=== PATIENT | male | born 1980 | race Caucasian/White ===

== ENCOUNTER 2021-06-27 23:00 | Emergency (ER) | payer OTHER, SELFPAY ==
--- NOTE | ~2021-06-27 | XR_ITS ---
EXAMINATION: XR thoracic spine 3V, XR lumbar spine min 4V DATE: 06/28/2021 00:21 INDICATION: Upper and lower back pain TECHNIQUE: 1. One AP, lateral and lateral swimmer's views of the thoracic spine were obtained. 2. AP, lateral, left and right oblique and coned-down lateral lumbosacral views of the lumbar spine w ere obtained. COMPARISON: Thoracic spine radiograph dated 11/14/[address] abdomen and pelvis dated 04/04/2019 FINDINGS: Thoracic spine: There are 13 paired rib-bearing thoracic segments. 8 degree cervicothoracic levocurvature and 9 degre es mid to lower thoracic dextrocurvature. Sagittal alignment is normal. Chronic T7 compression fractu re with <20% anterior vertebral body height loss. Remaining vertebral body heights are normal. Mild t o moderate disc height loss throughout the thoracic and lower cervical spine. Visualized portions of the lungs are clear. No pleural effusion or pneumothorax. Cardiomediastinal silhouette is normal. Lumbar spine: There are 5 nonrib-bearing lumbar segments. 28 degree lumbar levoscoliosis measured between T13 and L 4. 4 mm left lateral listhesis L3 on L4. Lumbar vertebral body heights are normal. Moderate to severe right-sided predominant disc height loss at L1-L2, L2-L3 and L3-L4. Moderate disc height loss at L4- L5 and L5-S1. Chronic left-sided pars interarticularis defect at L5. IMPRESSION: 1. 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 2. Chronic mild T7 compression fracture. 3. Moderate lumbar levoscoliosis with moderate to severe spondylosis. 4. 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 Reviewed, dictated and finalized at location A. IMPRESSION: 1. Mild S-shaped curvature of the cervicothoracic spine with moderate spondylos is. 2. Chronic mild T7 compression fracture. 3. Moderate lumbar levoscoliosis with moderate to severe spondylosis. 4. 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
[2021-06-27 23:13] VITALS: BP 115/87; PULSE 93; RESP 20; TEMP 36.6; O2SAT 96
[2021-06-28 00:16] VITALS: BP 124/90; PULSE 90; RESP 18; O2SAT 98
[2021-06-28] MEDS: IBUPROFEN 600 MG TABLET PO (00:18)
--- NOTE | 2021-06-28 02:03 | ED.GENADULT ---
HPI - General Adult General Chief complaint: Back Pain/Injury Stated complaint: back pain Time Seen by Provider: 06/27/21 23:45 Source: RN notes reviewed History of Present Illness HPI narrative: Patient presents emergency department from home for back pain. Patient states symptoms began approximately 1 month ago. States that pain is located from his mid upper back down to his lower back he states the pain is worse with bending over states he does have a curve to his back which he states he has not had before he denies any direct trauma or injury denies any fevers or chills chest pain shortness of breath abdominal pain nausea vomiting numbness or tingling of the extremities bowel or bladder incontinence or any other symptoms Related Data Allergies Allergy/AdvReac Type Severity Reaction Status Date / Time acetaminophen Allergy Intermediate Verified 10/28/18 12:05 Penicillins Allergy Unknown Verified 10/28/18 12:05 propoxyphene Allergy Unknown Verified 10/28/18 12:05 Sulfa (Sulfonamide Allergy Unknown Verified 10/28/18 12:05 Antibiotics) Review of Systems Review of Systems: Gen.: Denies fevers or chills ENT: Denies congestion Respiratory: Denies shortness of breath or cough CV: Denies chest pain or palpitations GI: Denies abdominal pain nausea, emesis or diarrhea denies bowel or bladder incontinence Musculoskeletal see HPI Neuro: Denies numbness, tingling, weakness or focal weakness Skin: Denies rash Except as documented, all other systems reviewed and negative [facility] Past Medical History Medical History (Updated 06/28/21 @ 02:05 by Shawn Stout DO) Patient denies significant medical history Family History Family History (Updated 03/28/19 @ 09:51 by DOCTOR UNKNOWN) Father Family history of cardiovascular disease Family history of coronary artery disease Other Family history of chronic obstructive pulmonary disease Social History Social History (Updated 06/28/21 @ 02:04 by Shawn Stout DO) Smoking status: Current every day smoker Alcohol intake: never Exam Narrative: APPEARANCE: No acute distress, nontoxic, resting in bed Eyes: EOMI HEENT: Normocephalic, atraumatic, CV: Regular rate and rhythm without murmur RESPIRATORY: No respiratory distress. Clear to auscultation bilaterally. Abdomen: Soft and nontender, no rebound or guarding MUSCULOSKELETAl: Moves all extremities, no clubbing cyanosis or edema Back: No midline lumbar tenderness to palpation or step-off, tender to palpation over bilateral paravertebral muscles T6-L5, pain increased with forward flexion there is scoliosis present NEURO: Awake and alert. Following commands, speech normal, no focal deficits, muscle strength 5 out of 5 bilateral lower extremities, bilateral patellar reflex 2+ SKIN:: Warm, dry. Normal Color no rash or lesions Course Course Emergency Course: Reviewed old records the patient does have a history of scoliosis the patient has been seen in the emergency department several times for back pain Patient with ambulate in ED with no difficulty Discussed with patient results of workup and diagnosis. Discussed need for follow-up with primary care, proper use of medication, and reasons to return to the emergency department. Patient understands and agrees to current treatment plan Vital Signs Vital signs: Vital Signs Temperature 97.9 F 06/27/21 23:13 Pulse Rate 93 06/27/21 23:13 Respiratory Rate 20 06/27/21 23:13 Blood Pressure 115/87 06/27/21 23:13 Pulse Oximetry 96 06/27/21 23:13 Temperature 97.9 F 06/27/21 23:13 Pulse Rate 90 06/28/21 00:16 Respiratory Rate 18 06/28/21 00:16 Blood Pressure 124/90 06/28/21 00:16 Pulse Oximetry 98 06/28/21 00:16 Medical Decision Making Vital Signs Vital Signs: Vital Signs Temperature 97.9 F 06/27/21 23:13 Pulse Rate 93 06/27/21 23:13 Respiratory Rate 20 06/27/21 23:13 Blood Pressure 115/87 06/27/21 2
[2021-06-28 02:21] VITALS: BP 120/73; PULSE 86; RESP 16; O2SAT 98
== END 2021-06-28 02:22 | disposition home or self-care (01) ==
PROVIDERS: Emergency Provider Emergency Medicine; PCP Emergency Medicine
DX: M54.5 Low back pain (principal); M47.816 Spondylosis without myelopathy or radiculopathy, lumbar region; M47.813 Spondylosis without myelopathy or radiculopathy, cervicothoracic region; F17.200 Nicotine dependence, unspecified, uncomplicated
CPT/HCPCS: 72072; 72110; 99283; A9270

== ENCOUNTER 2023-06-14 14:39 | Emergency (ER) | payer OTHER, SELFPAY ==
[2023-06-14 14:48] VITALS: BP 147/83; PULSE 56; RESP 16; TEMP 37; O2SAT 98
--- NOTE | 2023-06-14 15:21 | ED.DENTAL ---
HPI - Dental/Oral General Chief complaint: Dental/Oral Stated complaint: Toothache Source: patient Mode of arrival: ambulatory History of Present Illness HPI Narrative: 43-year-old male presented for complaint of left lower dental pain for 3 days. Endorses swelling to the gum. States he has broken tooth at this site. He does not have a dentist. He does not have a PCP. He is take ibuprofen for pain. Denies nausea, vomiting diarrhea, fevers or chills. MD Complaint: tooth pain Related Data Allergies Allergy/AdvReac Type Severity Reaction Status Date / Time acetaminophen Allergy Intermediate Verified 10/28/18 12:05 Penicillins Allergy Unknown Verified 10/28/18 12:05 propoxyphene Allergy Unknown Verified 10/28/18 12:05 Sulfa (Sulfonamide Allergy Unknown Verified 10/28/18 12:05 Antibiotics) Review of Systems Review of Systems: CONSTITUTIONAL: Denies body aches, fever, chills ENT: Denies rhinorrhea, congestion, sore throat, or otalgia. Reports dental pain CARDIOVASCULAR: Denies chest pain, palpitations RESPIRATORY: Denies cough or dyspnea. SKIN: Denies rash, itching, or wounds. MUSCULOSKELETAL: Denies myalgia. NEUROLOGIC: Denies headache, numbness, tingling, or weakness. [facility] Past Medical History Medical History Patient denies significant medical history Family History Family History Father Family history of cardiovascular disease Family history of coronary artery disease Other Family history of chronic obstructive pulmonary disease Social History Social History Smoking status: Current every day smoker Alcohol intake: never Comments At time of signature, I have reviewed and agree with nursing past medical, surgical, social and family history unless otherwise noted. Please see nursing chart for further information. There is no relevant family history pertinent to the presenting complaint Exam Narrative: GENERAL: Appears in pain; no acute distress. HEAD: Normocephalic, atraumatic. EYES: EOMI. No redness or drainage. Conjunctivae normal. ENT: Dental pain location#22, broken tooth abscess to gum with swelling and tenderness; missing teeth. Mucous membranes pink and moist. Throat normal. Uvula midline.no dysphagia, odynophagia, dysphonia, or dyspnea NECK: Normal AROM. No lymphadenopathy. no induration below mandible, no neck pain. CHEST: No respiratory distress. Clear to auscultation. HEART: Regular rate and rhythm. No murmur appreciated. SKIN: Warm, dry, no rash. Normal skin turgor. NEURO: No focal deficits. Alert and oriented x3. Gait steady. Course Course Emergency Course: Patient is aware of diagnosis, understands and agrees to treatment plan. Anticipatory guidance given. Patient agrees to follow-up as directed and is aware of reasons to seek care at the emergency department. Portions of this record may have been created with voice recognition software Level of Care: Express Care Visit Vital Signs Vital signs: Vital Signs Temperature 98.6 F 06/14/23 14:48 Pulse Rate 56 L 06/14/23 14:48 Respiratory Rate 16 06/14/23 14:48 Blood Pressure 147/83 H 06/14/23 14:48 Pulse Oximetry 98 06/14/23 14:48 Oxygen Delivery Room Air 06/14/23 14:48 Temperature 98.6 F 06/14/23 14:48 Pulse Rate 56 L 06/14/23 14:48 Respiratory Rate 16 06/14/23 14:48 Blood Pressure 147/83 H 06/14/23 14:48 Pulse Oximetry 98 06/14/23 14:48 Oxygen Delivery Room Air 06/14/23 14:48 MDM - Dental/Oral MDM Narrative Medical decision making narrative: Patients pain and complaint coupled with physical findings are consistent with dental abscess. There are no focal signs of space occupying lesions that are compromising to the airway; Patient is non-toxic appearing. The floor of the mouth is
== END 2023-06-14 15:35 | disposition home or self-care (01) ==
LOC: EXPCOLL 14:42
PROVIDERS: Emergency Provider Nurse Practitioner Family
DX: K04.7 Periapical abscess without sinus (principal)
CPT/HCPCS: 99213; G0463